=== PATIENT | female | born 1990 | race Caucasian/White ===

== ENCOUNTER 2024-10-29 08:25 | Outpatient (CLI) | payer OTHER, SELFPAY | END 2024-10-29 08:26 | disposition home or self-care (01) | PROVIDERS: PCP Physician Assistant Medical; Visit Provider Physician Assistant Medical | DX: R03.0 Elevated blood-pressure reading, without diagnosis of hypertension (principal); D68.51 Activated protein C resistance; R41.840 Attention and concentration deficit; Z13.6 Encounter for screening for cardiovascular disorders; Z13.29 Encounter for screening for other suspected endocrine disorder; Z13.9 Encounter for screening, unspecified | CPT/HCPCS: 80053; 80061; 84439; 84443 ==

== ENCOUNTER 2024-11-21 23:18 | Emergency (ER) | payer OTHER, SELFPAY ==
--- OUTSIDE RECORDS SUMMARY | 2024-11-21 23:20 | XMS_ITS | Encounter Summary ---
Author Organization [facility] Address [address] [address] Care Team Providers Care Benefits Officer Name Role Phone Angel Luis Samuel MD Primary Care Provider + [phone] Reason for Visit * Reason Comments CONGESTION, NASAL COUGH Encounter Details Date Type Department Care Team (Late st Contact Info) Description 11/14/2024 4:20 PM CDT Office Visit [facility] [address] [place] [id number] Suzie Schmid, PATHOLOGY LABORATORY DIRECTOR, [employer] [address] [place] [address] Acute bacterial sinusitis (Primary Dx) Social History Tobacco Use Types Packs/Day Years Used Date Smoking Tobacco: Never Smokeless Tobacco: Never Alcohol Use Standard Drinks/Week Comments Not Currently 0 (1 standard drink = 0.6 oz pur e alcohol) PHQ-2 Answer Date Recorded PHQ-2 Score 0 11/29/2022 Depression Answer Date Recor ded Last EPDS Total Score 2 08/27/2024 Last EPDS Self Harm Result Not on file 08/27 Comments No Sex and Gender Information Value Date Recorded Sex Assigned at Not on file Legal Sex Female 11:43 AM CDT Gender Identity Not on file Sexual Orientation Not on file 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 Acute Sinusitis: Care Instructions Overview Acute sinusitis is an inflammation of the mucous membranes inside the nose and sinuses. Sinuses arethe hollow spaces in your skull around the eyes and nose. Acute sinusitis often follows a cold. Acute sinusitis causes thick, discolored mucus that drains from the nose or down the back of the throat. It also can cause pain and pressure in your head and face along with a stuffy or blocked nose. In most cases, sinusitis gets better on its own in 1 to 2 weeks. But some mild symptoms may last for several weeks. Sometimes antibiotics are needed if there is a bacterial infection. Follow-up care is a mathis part of your treatment and safety. Be sure to make and go to all appointments, and call your doctor if you are having problems. It's also a good idea to know your test resultsand keep a list of the medicines you take. How can you care for yourself at home? Use saline (saltwater) nasal washes. This can help keep your nasal passages open and wash out mucusand allergens. You can buy saline nose washes at a grocery store or drugstore. Follow the instructions on the package. You can make your own at home. Add 1 teaspoon of non-iodized salt and 1 teaspoon of baking soda to 2 cups of distilled or boiled and cooled water. Fill a squeeze bottle or a nasal cleansing pot (suchas a neti pot) with the nasal wash. Then put the tip into your nostril, and lean over the sink. With your mouth open, gently squirt the liquid. Repeat on the other side. Try a decongestant nasal spray like oxymetazoline (Afrin). Do not use it for more than 3 days in a row. Using it for more than 3 days can make your congestion worse. If needed, take an drrj-gqd-fsdgbxr pain medicine, such as acetaminophen (Tylenol), ibuprofen (Advil, Motrin), or naproxen (Aleve). Read and follow all instructions on the label. If the doctor prescribed antibiotics, take them as directed. Do not stop taking them just because you feel better. You need to take the full course of antibiotics. Be careful when taking fnxt-gfc-grskeyd cold or flu medicines and Tylenol at the same time. Many ofthese medicines have acetaminophen, which is Tylenol. Read the labels to make sure that you are nottaking more than the recommended dose. Too much acetaminophen (Tylenol) can be harmful. Try a steroid nasal spray. It may help with your symptoms. Breathe warm, moist air. You can use a steamy shower, a hot bath, or a sink filled with hot water. Avoid cold, dry air. Using a humidifier in your home may help. Follow the directions for cleaning the machine. When should you call for help? Call your doctor now or seek immediate medical care if: You have new or worse swelling, redness, or pain in your face or around one or both of your eyes. You have double vision or a change in your vision. You have a high fever. You have a severe headache and a stiff neck. You have mental changes, such as feeling confused or much less alert. Watch closely for changes in your health, and be sure to contact your doctor if: You are not getting better as expected. Where can you learn more? 1. Go to https://www.[employer]/healthlibrary. 2. Enter I933 in the search box. Current as of: April 19, 2023 Content Version: 14.2 ?? 2023 [employer]. Care instructions adapted under license by your healthcare professional. If you have questions about a medical condition or this instruction, always ask your healthcare professional. [employer] disclaims any warranty or liability for your use of this information. documented in this encounter Progress Notes * Suzie Schmid, RIMA, ED - 11/14/2024 4:20 PM CDT Chief Complaint: Chief Complaint Patient presents with CONGESTION, NASAL COUGH HPI: Lili Devi is a 33-year-old female presenting to [facility] with complaints of cough and sinus pressure. She reports a persistent cough since September 2024, coinciding with a hysteroscopy performed at that time. Over the past week, she has developed bright green nasal drainage and has been experiencing a sore throat in the mornings. She describes significant head pressure and noted crackling with breathing. When she coughs, the mucus appears white or green. Additionally, she hasbeen feeling fatigued and experiencing brain fog. She denies fever and shortness of breath. Physical Exam: BP (!) 125/92 (BP Location: Left Arm, BP Cuff Size: Large) Pulse 82 Temp 98.6 ??F (37 ??C) SpO2 98% General: Well appearing. No acute distress. ENT: No conjunctival injection. External auditory canal without swelling, erythema or drainage. TMspearly and lowry without fluid, bulging, or retraction. Moist mucous membranes, oropharynx without erythema, exudates or tonsillar enlargement. Nares are without significant drainage. Neck: Supple. No lymphadenopathy or thyromegaly. CV: Regular rate and rhythm. No murmurs, rubs or gallops. Pulm: Breathing easily on room air. Clear to auscultation bilaterally without wheezes, rhonchi or rales. Extremities: Well perfused. Skin: No rashes on exposed areas of skin. Neuro: Alert. Normal speech. Psych:Appropriate affect. Assessment 1. Acute bacterial sinusitis - doxycycline monohydrate (MONODOX) 100 MG capsule; Take 1 Capsule (100 mg) by mouth two times a day for 7 days. Dispense: 14 Capsule; Refill: 0 - fluticasone propionate (FLONASE) 50 MCG/ACT nasal solution; Place 2 Sprays into both nostrils daily. Dispense: 16 g; Refill: 2 -Sinusitis likely related to bacterial infection given symptoms ongoing without improvement for >10 days. Will treat with doxycycline given penicillin allergy. Potential side effects discussed. Symptomatic cares discussed as detailed in the AVS. Patient to return should symptoms not improve withantibiotic course or for any new or worsening symptoms. Patient would like to receive results via OPS. Suzie Schmid APRN, CNP documented in this encounter Plan of Treatment Upcoming Encounters Date Type Department Care Team (Late st Contact Info) Description 02/06/2025 10:10 AM CDT Appointment [facility] [address] [place] [phone] Diane Finn, [facility] [address] [place], [place] [phone] documented as of this encounter Visit Diagnoses Diagnosis Acute bacterial sinusitis- Primary Acute sinusitis, unspecified documented in this encounter Care Teams Benefits Officer Relationship Specialty [place] [address] [place], [place] [phone] PCP - General Family Practice 05/29/23 documented as of this encounter
--- OUTSIDE RECORDS SUMMARY | 2024-11-21 23:20 | XMS_ITS | Encounter Summary ---
Author Organization [facility] Address [address] [place] [address] Care Team Providers Care Glass Ribbon Machine Operator Name Role Phone Angel Luis Samuel MD Primary Care Provider + [phone] Reason for Visit * Reason Comments HEADACHE Hypertension Encounter Details Date Type Department Care Team (Late st Contact Info) Description 11/21/2024 Nurse Triage Careline [address] [place] [address] Unassigned, Provider [address] [place] [address] HEADACHE; Hypertension Social History Tobacco Use Types Packs/Day Years [...] on file documented as of this encounter Nursing Notes * Heidy Schmidt RN - 11/21/2024 10:44 PM CDT Situation/Background (brief explanation of current symptoms/situation): Pt states: I felt off most of day Had a splitting headache earlier Took imitrex Migrained came back, took another dose at 5PM Finie if laying down, if gets up and moves around , it is really bad 163/101, 20 min later BP is 166/105 What level is care If I should go in for Had htn, But it as been a health range since them Had a hyderectomy, since , has been 139/90 High today Headache -03/02 Did have a sinus infection, just completed a dose of doxycycline, last dose this AM Does feel like heart is working hard -- heaviness Difficulty breathing Reason for Disposition [1] Systolic BP >= 160 OR Diastolic >= 100 AND [2] cardiac (e.g., breathing difficulty, chestpain) or neurologic symptoms (e.g., new-onset blurred or double vision, unsteady gait) [1] Chest pain lasts > 5 minutes AND [2] described as crushing, pressure-like, or heavy Protocols used: Blood Pressure - [id number], Chest [id number] Plan - recommend calling 911 due to heaviness in chest and high blood pressure Advised patient/caller to call back CareLine if there are further questions or concerns or to be seen if situation becomes emergent. The CareLine is available 13/02. Heidy Schmidt RN 11/21/2024, 10:53 PM * Ivania Bang - 11/21/2024 10:42 PM CDT Verified patient using 3 identifiers: Yes Caller reports the following red flag symptoms: Pt has high blood pressure and a headache. BP is 163/101 Plan: Transferred directly to a CareLine RN. documented in this encounter Plan of Treatment Upcoming Encounters Date Type Department Care Team (Late st Contact Info) Description 02/06/2025 10:10 AM CDT Appointment [address] [phone] Diane Finn, [facility] [address] [place], [place] [phone] documented as of this encounter Visit Diagnoses Not on filedocumented in this encounter Care Teams Glass Ribbon Machine Operator Relationship Specialty Start [place] [address] [facility] [place] [id number] PCP - General Family Practice 05/29/23 documented as of this encounter
--- OUTSIDE RECORDS SUMMARY | 2024-11-21 23:20 | XMS_ITS | Data Portability ---
Author Organization [facility] [employer], [id number] Address [address] [address] Assessment Encounter Date Assessment Date Assessment LastModified by Organization Details LastModified Time 05/03/2024 05/03/2024 Obese 33yo 01 with irregular periods and intermenstrual bleeding. Suspected endometrial and endocervical polyps. Suspected anovulation. Hirsutism. Query PCO. +FVL. Lili's pelvic ultrasound report and attached images were reviewed with her today in detail. We discussed that the entirety of her images would be reviewed by one of my colleagues who is AI accredited and she would be notified of any consequential changes or concerns. We discussed the suspected 3 endometrial versus endocervical polyps, and how these are likely contributing to her intermenstrual spotting. We discussed the recommendation for surgical management. She will be scheduled for a hysteroscopy, polypectomy, possible dilation and curettage. She was shown a you tube video of a polypectomy to further her understanding of the procedure. She understands the need for direct visualization of the uterine cavity as well as overall sampling of the uterine cavity, given her abnormal bleeding history. We discussed endometrial suppression with oral progesterone after her procedure, as she cannot have estrogen due to her FVL status. All risks, benefits and alternatives of the procedure were discussed today including but not limited to bleeding, infection, injury to surrounding organs/structures (bowel, bladder, ureters, urethra, vagina, cervix, ovaries, tubes)/blood vessels/nerves, need for further procedure, need for hysterectomy, medical complications (pneumonia, stroke, heart attack, DVT/PE, ), risks of anesthesia, uterine scarring, complications for future pregnancies. She will be scheduled for the above procedure and contacted by our surgical sales representative and scheduled for any necessary pre and postoperative visits. She will also complete the prior recommended labs which will be followed up when resulted. All of her questions were answered. I spent a total of 30 minutes providing care for this patient including: preparing to see the patient, obtaining a medical history, completing a medically appropriate physical exam, completing documentation of visit information and plans in the EMR, counseling the patient and/or caregiver regarding her diagnosis, treatment options and follow up plans, as well as any necessary communication of subsequent test results to the patient, reviewing medical records, reviewing imaging. Not available 05/03/2024 11:15:21 07/29/2024 07/29/2024 33yo wit h AUB-P, scheduled for a hysteroscopy, polypectomy, possible D&C 08/22/24 at [facility]. Lili is doing well and has no contraindications for surgery 08/22/24 at [facility]. She will present as recommended by surgical scheduling and will be NPO for at least 8 hours prior to surgery. The surgery was again reviewed in detail, as well as all risks of the procedure, including but not limited to uterine perforation and injury to intraabdominal organs. A you tube video was also shown to Lili to increase her understanding of the procedure. We again reviewed that the majority of polyps are benign, however in the event of hyperplasia or greater, further treatment or surgical intervention may be necessary. Postoperative expectations and restrictions were again reviewed. No prescriptions are needed preoperatively, and she should only need tylenol and ibuprofen postoperatively. Postoperative warning signs/symptoms with which to call were also reviewed. She will then follow up 2 weeks postoperatively, already scheduled for 09/06/24. She will reach out prior to surgery with any further questions. Not available 07/29/2024 09:40:12 09/30/2024 09/30/2024 33yo wit h AUB-P, scheduled for a hysteroscopy, polypectomy, possible D&C 10/09/24 at [facility]. Lili is doing well and has no contraindications for surgery 10/09/24 at [facility]. She will present as recommended by surgical scheduling and will be NPO for at least 8 hours prior to surgery. The surgery was again reviewed in detail, as well as all risks of the procedure, including but not limited to uterine perforation and injury to intraabdominal organs. A you tube video was also previously shown to Lili to increase her understanding of the procedure. We previously reviewed that the majority of polyps are benign, however in the event of hyperplasia or greater, further treatment or surgical intervention may be necessary. Postoperative expectations and restrictions were previously and again reviewed. No prescriptions are needed preoperatively, and she should only need tylenol and ibuprofen postoperatively. Postoperative warning signs/symptoms with which to call were previously reviewed. She will then follow up 2 weeks postoperatively. A prescription for the minipill was sent to her pharmacy today, with instructions on how to start and take the pill, as well as what to do if she is late or misses taking the pill, as well as back up contraception. She will reach out prior to surgery with any further questions. [email or web address] Not available 10/02/2024 00:52:47 11/04/2024 11/04/2024 33yo 3.5 weeks s/p hysteroscopy, polypectomy, D&C for AUB-P, obesity and FVL heterozygote, routine postoperative visit. Lili is doing well and meeting all routine postoperative milestones. She may return to all preoperative activities without restriction. Her pathology was reviewed with her today in detail, highlighting the presence of hyperplasia without atypia. We discussed this diagnosis in detail, as well as the 1-10% risk of the development of neoplasia. We discussed options for treatment including but not limited to expectant management, PO progesterone as well as topical progesterone. She desires to think about PO progesterone (megace) versus an IUD as she desires to attempt to conceive in 1-2 years. She will follow up for routine health maintenance or sooner with concerns. All of her questions were answered to her satisfaction. Not available 11/04/2024 11:12:22 Plan of Treatment Reminders Order Date Submit Date Provider Last Modified By Organization Details Last Modified Time Details Appointments None recorded. Lab hemoglobin (Hb), fingerstick , blood 2024 025 ronnvorso n1 [id number] [facility] , [address] [place] [address], [address], [place], [address], 04/14/202 5 10:48:00 hemoglobin (Hb), fingerstick , blood 2024 025 phalvorso n1 [id number] [facility] , [address] [place] [address] [address] [place], [address], [place], [address], 5 18:09:05 hemoglobin (Hb), fingerstick , blood 2024 025 phalvorso n1 [id number] [facility] , [address] [place] [address], [address], [place], [address], 5 09:18:35 androstened cabazon, serum 2023 [facility], [address] [facility], [address], [place], [address], 4 08:44:28 dhea-sulfat e, serum 2023 [facility], [address] [facility], [address], [place], [address], 4 08:40:14 testosteron e, total, serum 2023 [facility], [address] [facility], [address], [place], [address], 4 08:44:29 lipid panel, serum 2023 [facility], [address] [facility] [address], [address], [place], [address], 4 08:44:25 hemoglobin A1c, QN, blood 2023 [facility], [address] [facility], [address], [place], [address], 4 08:44:22 TSH, serum or plasma 2023 [facility], [address] [facility] [address], [address], [place], [address], 4 08:44:25 FSH (follicle-s timulating hormone), serum 2023 [facility], [address] [facility], [address], [place], [address], 4 08:40:10 lh (luteinizin g hormone), serum 2023 [facility], [address] [facility], [address], [place], [address], 4 08:44:24 estradiol, serum 2023 [facility], [address] [facility], [address], [place], [address], 4 08:40:11 Referral None recorded. Procedures None recorded. Surgeries hysteroscop y, surgical, with biopsy of endometrium and/or polypectomy (SURG) 2023 024 [email or web address] 2 [facility], [address] [place] [address] , [address], [place], [address], 5 12:36:21 Imaging US, transvagina l 2023 024 vishnu [email or web address]_[email or web address] nisreen_ortley, [address], [address], [place], [address], 4 10:07:14 Medication Orders norethindro ne (contracept sadi) 0.35 mg tablet 2024 025 ronnvoangelo n1 [id number], [address] [facility], [place], [address], 5 17:35:28 Patient TargetsNo targets recorded. Patient InstructionsNo instructions recorded. Reason for Referral None Reported. Results Created Date Observation Date Name Description Value Unit Range Abnormal Flag Note LastModifiedBy Organization Detail LastModifiedTime 05/03/2005/03/2024 FOLLI PHYLICIA STIMU LATIN G HORMO NE FSH 2.0 mIU/m L 19 years and older : Folli cular phase : 3.5-1 2.5 mIU/m L Ovula tion phase : 4.7-2 1.5 mIU/m L Lutea l phase : 1.7-7 .7 mIU/m L Postm enopa use: 25.8- 134.8 mIU/m L Not Available [address], [place], [address], 05/06/2024 08:40:10 05/03/20 24 05/03/2024 ESTRA DIOL estradiol 235 pg/mL Healt hy Men: 11.3- 43.2 pg/mL Healt hy Postm enopa usal Women : Postm enopa use: <5-13 8 pg/mL Healt hy Pregn ant Women : 1st trime ster: 154-3 243 pg/mL 2nd trime ster: 1561- 71308 pg/mL 3rd trime ster: 8525- >3000 0 pg/mL Healt hy Women Cycle Phase : Folli cular : 30.9- 90.4 pg/mL Ovula tion: 60.4- 533 pg/mL Lutea l: 60.4- 232 pg/mL Healt hy Women Cycle Sub-P hase: Early Folli cular : 20.5- 62.8 pg/mL Inter media te Folli cular : 26-79 .8 pg/mL Late Folli cular : 49.5- 233 pg/mL Ovula tion: 60.4- 602 pg/mL Early Lutea l: 51.1- 179 pg/mL Inter media te Lutea l: 66.5- 305 pg/mL Late Lutea l: 30.2- 222 pg/mL Not Available [address], [place], [address], 05/06/2024 08:40:11 05/03/20 24 05/03/2024 DHEA SULFA TE DHEA sulfate 128 ug/dL 35-[address] [facility] [address] [facility] [address], [place], [address], 05/06/2024 08:40:14 05/03/2005/03/2024 HEMOG LOBIN A1C estimated average glucose 108 mg/dL <117 Not Available [address], [place], [address], 05/07/2024 08:44:22 05/03/20 24 05/03/2024 HEMOG LOBIN A1C hemoglobin A1C 5.4 % <5.7 Jewels l <5.7% Predi abete s 5.7-6 .4% Diabe xavier 6.5% or highe r Note: Adopt ed from ADA conse nsus guide lines . Not Available [address], [place], [address], 05/07/2024 08:44:22 05/03/20 24 05/03/2024 LUTEI NIZIN G HORMO NE luteinizing hormone 4.4 mIU/m L FEMAL E: Age 0 - 6 mo: <0.1- 8.2 mIU/m L 6 mo - 11 years : <0.1- 1.3 mIU/m L 11 - 14 years : <0.1- 10 mIU/m L 14 - 19 years : 0.4-2 5 mIU/m L 19 years and older : Folli cular Phase : 2.4-1 2.6 mIU/m L Ovula tion Phase : 14.0- 95.6 mIU/m L Lutea l Phase : 1.0-1 1.4 mIU/m L Postm enopa usal: 7.7-5 8.5 mIU/m L Not Available [address], [place], [address], 05/07/2024 08:44:24 05/03/20 24 05/03/2024 LIPID PANEL cholesterol 227 mg/dL <200 high Not Available [address], [place], [address], 05/07/2024 08:44:24 05/03/20 24 05/03/2024 LIPID PANEL triglyceride s 218 mg/dL <150 high Not Available [facility] [address], [place], [address], 05/07/2024 08:44:24 05/03/20 24 05/03/2024 LIPID PANEL direct measure HDL 41 mg/dL >=50 low Not Available [facility] [address], [place], [address], 05/07/2024 08:44:24 05/03/20 24 05/03/2024 LIPID PANEL LDL cholesterol calculated 142 mg/dL <100 high Not Available [facility] [address] [facility] [address], [place], [address], 05/07/2024 08:44:24 05/03/20 24 05/03/2024 LIPID PANEL non HDL cholesterol 186 mg/dL <130 high Not Available [facility] [address] [facility] [address], [place], [address], 05/07/2024 08:44:24 05/03/20 24 05/03/2024 LIPID PANEL patient fasting > 8hrs? Yes Fabi stero l Hakan able: < 200 mg/dL Bor[place] High: 200 - 239 mg/dL High: >= 240 mg/dL Trigl yceri melba Jewels l: < 150 mg/dL [place] High: 150 - 199 mg/dL High: 200-4 99 mg/dL Very High: >= 500 mg/dL Direc t Measu re HDL Femal e: >= 50 mg/dL Male: >= 40 mg/dL LDL Fabi stero l Hakan able: < 100 mg/dL Above Hakan able: 100 - 129 mg/dL [place] High: 130 - 159 mg/dL High: 160 - 189 mg/dL Very High: >= 190 mg/dL Non HDL Fabi stero l Hakan able: < 130 mg/dL Above Hakan able: 130 - 159 mg/dL Minnie win High: 160 - 189 mg/dL High: 190 - 219 mg/dL Very High: >= 220 mg/dL Not Available [address], [place], [address], 05/07/2024 08:44:24 05/03/20 24 05/03/2024 TSH WITH REFLE X TO FREE T4 TSH 2.05 uIU/m L 0.30-4 .20 Not Available [address], [place], [address], 05/07/2024 08:44:25 05/03/20 24 05/03/2024 VICKIE JEZE SALVATORE androstenedi one 0.527 NG/mL 0.260- 2.140 INTER PRETI VE INFOR MATIO N: Vickie salomon salvatore , Femal es 18 years and older Post- menop ausal : 0.13- 0.82 ng/mL REFER ENCE INTER BISHOP: Vickie stene salvatore by TMS Acces s compl ete set of age- and/o r gende r-spe cific refer ence inter vals for this test in the [employer] Test Direc tory ([employer] lab.c om). This test was devel oped and its perfo rmanc e emile cteri stics deter mined by [employer] es. It has not been clear ed or appro amber by the [place] Food and Drug Admin istra tion. This test was perfo rmed in a CLIA certi fied labor atory and is inten ded for clini fernanda purpo ses. Perfo rmed By: [facility] [address] [place] [address] Labor atory Direc tor: Roopa mireles MD, PhD CLIA Numbe r: [id number] Not Available [address], [place], [address], 05/07/2024 08:44:27 05/03/20 24 05/03/2024 TESTO STERO NE TOTAL testosterone total 9 NG/dL 8-60 Not Available [facility] [address], [place], [address], 05/07/2024 08:44:29 07/29/19 25 07/29/2024 hemog lobin (Hb), finge rstic k, blood fingerstick hemoglobin 14.4 g/dL 12.0-1 5.0 Not Available [address], [place], [address], 07/29/2024 09:15:36 10/01/19 25 09/30/2024 hemog lobin (Hb), finge rstic k, blood fingerstick hemoglobin 13.3 g/dL 12.0-1 5.0 Not Available [address], [place], [address], 09/30/2024 17:12:21 11/05/19 25 11/04/2024 hemog lobin (Hb), finge rstic k, blood fingerstick hemoglobin 12.2 g/dL 12.0-1 5.0 Not Available [address], [place], [address], 11/04/2024 10:38:15 05/03/20 24 05/03/2024 US, trans vagin al No observ ation record ed. aalmdanisreen Scott [address], [place], [address], 05/08/2024 10:09:39 Result Notes None recorded. Problems No Known Problems Procedures Surgical History Date Name Laterality Status Provider Name and Address Organization Details Recorded Time 10/10/19 25 HYSTEROSCOPY, SURGICAL, WITH BIOPSY OF ENDOMETRIUM AND/OR POLYPECTOMY (SURG) completed Karen AGUILLON - [facility] [employer] 10/14/2024 12:36:33 03/24/20 23 Date of Last Pap Smear completed Ivania Dial [facility] [employer] [employer] 01/29/2024 17:44:10 12/05/19 21 Caesarean Section completed Irais Mane [facility] [employer] 05/03/2024 09:39:14 Imaging Results Imaging Date Name Status LastModified by Organization Details LastModified Time 05/03/2024 US, transvaginal completed a[place] Sonia [address], [place], [address], 05/08/2024 10:09:39 Procedure Notes None recorded. Medical Equipment None Reported. Allergies Allergen ID Allergen Name Allergen Category Reaction Reaction Severity Criticality Documentation Date Start Date Code Code System Note Provider Name and Address Organization Details Recorded Time 744110 amoxicill in medicatio n rash Not available low 01/29/2024 723 RxNorm Ivania Dial janna, [facility] [employer] 17:16:47 Medications Name Sig Start Date Stop Date Status Note LastModified by Organization Details LastModified Time ofloxacin 0.3 % eye drops INTILL 1 DROP IN THE AFFECTED EYE EVERY 2 HOURS FOR 2 DAYS, THEN 4 TIMES DAILY FOR 5 MORE DAYS 01/28 completed Not Available Not Available Not Available sumatriptan 50 mg tablet active Not Available Not Available Not Available triamcinolo ne acetonide 0.1 % topical cream APPLY TO AFFECTED AREA THREE TIMES A DAY NEEDED (ONLY USE FOR 7 DAYS MAXIMUM ON FACE) 01/28 completed Not Available Not Available Not Available lisinopril 10 mg tablet TAKE ONE TABLET BY MOUTH EVERY DAY 05/02 completed Not Available Not Available Not Available megestrol 40 mg tablet Take 1 tablet every day by oral route. 2024 active Not Available Not Available Not Avai lable norethindro ne (contracept sadi) 0.35 mg tablet TAKE ONE TABLET BY MOUTH EVERY DAY active Not Available Not Available No t Available doxycycline hyclate 100 mg tablet TAKE ONE TABLET BY MOUTH TWICE A DAY FOR 10 DAYS 01/28 completed Not Available Not Available Not Available dextroamphe tamine-amph etamine 5 mg tablet Take 1 tablet every day by oral route. active Not Available Not Available No t Available multivitami n active Not Available Not Available Not Available lisdexamfet amine 50 mg capsule TAKE 1 CAPSULE BY MOUTH DAILY IN THE MORNING* active Not Available Not Available No t Available lisdexamfet amine 60 mg capsule TAKE ONE CAPSULE BY MOUTH DAILY IN THE MORNING. Dispense 28 days after last fill* 07/29 completed Not Available Not Available Not Available Wegovy 1 mg/0.5 mL subcutaneou s pen injector INJECT 0.5 ML UNDER THE SKIN ONCE A WEEK FOR 28 DAYS 01/28 completed Not Available Not Available Not Available Vitals Date Recorded Body height Body mass index (BMI) Body weight Systolic blood pressure Diastolic blood pressure Provider Name and Address Organization Details Last Updated DateTime 05/03/2024 175.26 cm 39.6 kg/m2 836768.7 6 g 126 mm[Hg] 84 mm[Hg] [facility] 4 09:44:24 Date Recorded Body height Body mass index (BMI) Body weight Systolic blood pressure Diastolic blood pressure Provider Name and Address Organization Details Last Updated DateTime 07/29/2024 175.26 cm 39.4 kg/m2 040227.1 6 g 130 mm[Hg] 88 mm[Hg] [facility] 5 09:13:53 Date Recorded Body height Body mass index (BMI) Body weight Systolic blood pressure Diastolic blood pressure Provider Name and Address Organization Details Last Updated DateTime 09/30/2024 175.26 cm 38.8 kg/m2 591122.3 6 g 126 mm[Hg] 86 mm[Hg] [facility] 5 17:10:44 Date Recorded Body height Body mass index (BMI) Body weight Systolic blood pressure Diastolic blood pressure Systolic blood pressure Diastolic blood pressure Provider Name and Address Organization Details Last Updated DateTime 5 175.26 cm 38.7 kg/m2 742108. 48 g 148 mm[Hg] 100 mm[Hg] 142 mm[Hg] 96 mm[Hg] [facility] 5 10:35:52 Social History Question Answer Notes LastModified by Organizat ion Details LastModified Time Tobacco Smoking Status Never Smoker [place] [employer] 01/29/2024 17:50:43 What Is Your Level Of Alcohol Consumption? None Information not available 01/29/2024 What Is Your Level Of Caffeine Consumption? Moderate Information not available 01/29/2024 History Of Domestic Violence No Information no t available 01/29/2024 Spouse/Partners Name Fransisco Information not available 01/29/2024 What Is Your Relationship Status? Information not available 01/29/2024 Are You Sexually Active? Yes Information not available 01/29/2024 Do You Use Any Illicit Or Recreational Drugs? No Information not available 01/29/2024 Sex: Unknown Functional Status Question Answer Note LastModified by Organization D etails LastModified Time What is your exercise level? Moderate [email or web address] Information not available 01/29/2024 Mental Status None recorded. Family History Relationship Description Onset Age of this Age Resolved Age Notes LastModified by Organization Details LastModified Time Mother Pulmonary embolism [email or web address] Not available 2023 08:58:26 Sister Pulmonary embolism [email or web address] Not available 2023 08:58:26 Maternal Grandmother Pulmonary embolism [email or web address] Not available 2023 08:58:26 Father Diabetes mellitus Not available 01/28 17:48:52 Father Hyperlipidem ia Not available 2023 08:58:26 Father Hypertensive disorder Not available 01/28 17:49:52 Paternal Grandfather Diabetes mellitus Not available 01/28 17:48:52 Paternal Grandfather Myocardial infarction Not available 02/2024 17:49:10 Paternal Grandfather Hyperlipidem ia [email or web address] Not available 2023 08:58:26 Paternal Grandfather Hypertensive disorder Not available 01/28 17:49:52 Paternal Grandmother Myocardial infarction Not available 02/2024 17:49:10 Paternal Grandmother Hyperlipidem ia [email or web address] Not available 2023 08:58:26 Paternal Grandmother Hypertensive disorder Not available 01/28 17:49:52 Medical History Condition Response Hematology- Blood Clotting Disorder/Fact or V Leiden Y Neurology- Headaches/Migraines Y Cardiology- High Blood Pressure Y Hematology- DVT/Pulmonary Embolism N Gynecological History Statement/Question Response History of Abnormal PAP N History of Recurrent Ovarian Cysts N Date of LMP 10/17/2024 6 11 Age at Menarche: 11 History of Sexually Transmitted Infectio n N Y HPV Vaccine Complete Diethylstilbestrol (MELBA) exp osed daughters of women who took MELBA during ? N Current Control Method Condoms Urinary Incontinence Symptoms N Date of Last Pap Smear 03/24/2023 Obstetrics History GPAL:G 1 P 1 0 0 1 Type Value Full Term 1 Living 1 Total 1 Immunizations Vaccine Type Date Status Note Provider Nam e and Address Organization Details Recorded Time Influenza, MDCK, quadrivalent, PF 05/27/2023 completed Ivania Yojana null, [place] [facility] 01/29/2024 17:14:17 Influenza, MDCK, quadrivalent, PF 05/31/2022 completed Ivania Yojana null, [place] [employer] 01/29/2024 17:14:17 COVID-19, mRNA, LNP-S, PF, 30 mcg/0.3 mL dose 10/19/2020 completed Ivania Nicholas null, [place] [facility] 01/29/2024 17:14:17 COVID-19, mRNA, LNP-S, PF, 30 mcg/0.3 mL dose 11/09/2020 completed Ivania Nicholas null, [place] - [place] [facility] 01/29/2024 17:14:17 COVID-19, mRNA, LNP-S, PF, 30 mcg/0.3 mL dose 07/01/2021 completed Ivania Nicholas null, [place] - [facility] 01/29/2024 17:14:17 COVID-19, mRNA, LNP-S, bivalent, PF, 30 mcg/0.3 mL dose 06/06/2022 completed Ivania Yojana null, [place] - [facility] 01/29/2024 17:14:17 COVID-19, mRNA, LNP-S, PF, sergio-sucrose, 30 mcg/0.3 mL 05/27/2023 completed Ivania Nicholas null, [place] - [facility] 01/29/2024 17:14:17 Tdap 11/27/2020 completed Ivania Nicholas null, [place] [facility] 01/29/2024 17:14:17 Tdap 03/06/2020 completed Ivania Nicholas null, [place] [facility] 01/29/2024 17:14:17 Influenza, split virus, trivalent, PF 05/05/2020 completed Ivania Nicholas null, [place] [facility] 01/29/2024 17:14:17 Influenza, split virus, quadrivalent, PF 04/19/2021 completed Ivania Nicholas null, [place] [facility] 01/29/2024 17:14:17 COVID-19, mRNA, LNP-S, PF, sergio-sucrose, 30 mcg/0.3 mL 04/29/2024 completed Irais Mohamed null, [place] [facility] 05/03/2024 09:41:03 Influenza, MDCK, trivalent, PF 04/29/2024 completed Irais Mohamed null, [place] - [facility] 05/03/2024 09:41:03 Past Encounters Encounter ID Performer Location Encounter Start Date Encounter Closed Date Diagnosis/Indication Diagnosis SNOMED-CT Code Diagnosis ICD10 Code Diagnosis Note [id number] BRO LEMUS MD [id number] [facility] [facility] ,[address] [place] [id number] 01/29/2024 17:11:02 01/30/2024 09:45:24 Irregular periods 12130885 N92.6 Irregular intermenstrual bleeding 77661359 N92.1 Gynecologi c examination 20793917 Z01.419 Obesity [id number] E66.9 [id number] GILBERTO NEFF MD [id number] [address] [place] ,[address] [place] [address] 05/03/2024 08:58:23 05/03/2024 09:41:16 Abnormal uterine bleeding [id number] 9100 N93.9 [id number] BRO LEMUS MD [address] ,[address] [facility] [place] [address] 05/03/2024 09:37:47 05/03/2024 11:39:27 Endometrial polyp [id number] N84.0 Surgery Scheduling : 1. Surgery: hysterosco py, polypectom y 2. Reason/ind ication: endometria l/endocerv ical polyps, intermenst rual bleeding 3. Head Of It? : no 4. Anesthesia : MAC, local 5. Location/a dmission status: [facility] 6. Time: 60 minutes 7. Instrument s: truclear 8. Rep?: no 9. Antibiotic s?: none indicated 10. Preop: with PH 2 weeks prior11. Postop: with PH 2 weeks after Irregular periods [id number] 07 N92.6 Hirsutism [id number] L68. 0 Factor V L eiden mutation [id number] D68.51 [id number] BRO LEMUS MD [address] ,[address] [place] [address] 07/29/2024 09:03:16 07/29/2024 09:50:31 Pre-surgery evaluation [id number] Z01.818 Abnormal u terine bleeding [id number] 9100 N93.9 Polyp of cervix 29775739 N84.1 [id number] BRO LEMUS MD [address] ,[address] [facility] [place] [place] [address] 09/30/2024 16:58:33 10/02/2024 13:24:05 Preprocedural examination done [id number] 21787 Z01.818 Pre-surger y evaluation 439272065 Z01.818 Abnormal u terine bleeding 4935945395 9100 N93.9 Polyp of cervix 96522443 N84.1 Initial pr escription of oral contraception 936877033 Z30.988 [id number] BRO LEMUS MD [address] [address] [facility] [address] ,[address] [place] [address] 11/04/2024 10:26:33 11/04/2024 11:13:22 Endometrial hyperplasia 642409021 N85.00 Postoperative visit 1832 29920 Z48.89 Health Concerns Section Related Observation LastModified by Organization Detai ls LastModified Time None Recorded Concern Status LastModified by Organization Details LastModified Time None Recorded Advance Directives Directive None Recorded Payers Encounter Date Sequence Insurance Name Policy Number Policy Arreaga Covered Member ID Arreaga Member ID Guarantor Name 05/03/2024 1 [employer] - OPEN ACCESS CHOICE (HMO) 361 Lili Devi [id number] Lili Devi 05/03/2024 1 [employer] - OPEN ACCESS CHOICE (HMO) 361 Lili Devi [id number] Lili Devi 07/29/2024 1 [employer] - OPEN ACCESS CHOICE (HMO) 361 Lili Devi [id number] Lili Devi 09/30/2024 1 [employer] - OPEN ACCESS CHOICE (HMO) 361 Lili Devi [id number] Lili Devi 11/04/2024 1 [employer] - OPEN ACCESS CHOICE (HMO) 361 Lili Devi [id number] Lili Devi Notes Date Note Type Note Provider Name and Address Organization Details Recorded Time 05/03/2024 text/html Lili is a 33yo , LMP 04/12/24, who returns after a pelvic ultrasound, obtained for irregular periods and intermenstrual bleeding. She was last seen 01/29/24 for an annual exam, at which time she reported irregular periods over the past year. She noted for the most recent 4 months, she has also been having irregular, intermenstrual spotting, even a day or so. She noted her cycles were ranging from q14-35 days. She also reported occasional nipple and lower abdominal hairs. That day, it was recommended to check labs given her suspected anovulation and hirsutism as well as obtain a pelvic ultrasound. Due to the time of her appointment, however, she was unable to have her labs drawn. Thus, she will complete these today. Pelvic ultrasound today, 05/03/24, showed the following:Uterus 10.11 x 4.9 x 6.41cm, AVEMS 14.35mm, 3 suspected endometrial/endocervic al polyps: 1.7cm, 1.0cm and 0.4cmROV not visibleLOV 4.3 x 3.2 x 2.5cm with a 3.2cm simple cystNo FF She reports that since the was last seen, she has continued to have intermenstrual bleeding. Most recently, this occurred 03/31, at which time she reports she soaked a pad during the day, with a large gush of bright red bleeding, out of no where. She then got a normal period 2 [place] [id number], [place], [address], [facility] - [employer] 05/03/2024 11:16:10 07/29/2024 text/html Lili is a 33yo , LMP 07/09/24, who presents for a preoperative visit. She is scheduled for a hysteroscopy, polypectomy, possible D&C with Daljit at the [facility] on 08/12/24. Pelvic ultrasound 05/03/24 showed at least 3 suspected endocervical polyps: 1.7cm anterior, 1.0cm posterior and 0.4cm posterior. She had anesthesia in the past for her section and did well. She has no family history of problems with anesthesia. She has FVL (heterozygote), EDMAR as well as HTN, however she is no longer on antihypertensives. She is taking lisdexamfetamine 50mg daily and an as needed adderall 5mg prn tablet. She is taking a hair, skin and nails vitamin. She does not take any herbal supplements.She is allergic to amoxicillin, for which she gets a rash. She denies any recent fevers, chills, nausea, emesis, diarrhea, constipation or dysuria. She denies chest pain, shortness of breath or abdominal pain. They had walking pneumonia and strep right before [place]. Her hemoglobin today [place] 14.4 [place] [id number], [place], [address], [facility] - [employer] 07/29/2024 09:40:44 09/30/2024 text/html Lili is a 33yo , LMP 09/10/24 who presents for a preoperative visit. She is scheduled for a hysteroscopy, polypectomy, possible D&C with Truclear at the [facility] on 10/09/24. Pelvic ultrasound 05/03/24 showed at least 3 suspected endocervical polyps: 1.7cm anterior, 1.0cm posterior and 0.4cm posterior. The whole family had strep right before her initially planned procedure, 08/12/24, and thus she rescheduled her procedure. She had anesthesia in the past for her section and did well. She has no family history of problems with anesthesia. She has FVL (heterozygote), EDMAR as well as HTN, however she is no longer on antihypertensives. She is taking lisdexamfetamine 50mg daily and an as needed adderall 5mg prn tablet. She is taking a hair, skin and nails vitamin. She does not take any herbal supplements.She is allergic to amoxicillin, for which she gets a rash. She denies any recent fevers, chills, nausea, emesis, diarrhea, constipation or dysuria. She denies chest pain, shortness of breath or abdominal pain. Her hemoglobin today is 13.3. She is interested in starting on POPs (due to her contraindication to estrogen) [place] [address] [facility],[address], [place], [address], [place] [facility] [employer] 10/02/2024 00:53:06 11/04/2024 text/html Lili is a 33yo 3.5 weeks s/p hysteroscopy, polypectomy, D&C for AUB-P, obesity and FVL heterozygote who presents for a routine postoperative visit. Intraoperative findings were significant for 2 2cm polyps with right fundal cobwebby endometrium and remaining proliferative endometrium. Final pathology showed the following:Fragments of endometrial polyp with focal hyperplasia and metaplastic changesComment: sections of the endometrial polyp show foci of crowding of irregular glands, back to back with little intervening stroma. These foci show predominantly tubal metaplasia with no definitive cytologic atypia divergent from the background endometrium. The overall findings are sufficient for diagnosis of hyperplasia without atypia. Close follow up is recommended. Since surgery, Lili has been doing well. She initially only had a small amount of bleeding which then stopped. She has not had any abdominal or pelvic cramping. She denies fevers, chills, nausea, emesis, diarrhea, constipation [place] [address] [facility],[address], [place], [address], [place] [facility] [employer] 11/04/2024 11:12:42 OBGyn Episode Ob Episode Information Episode Created Date Number of Fetuses Patient Bloodtype Patient rh Status Prepregnancy Weight lbs Domestic Partner Domestic Partner Phone Father Name Crisis Clinician Status 01/29/20 24 1 CLOSED Fetus Data First Name Last Name Admitted to NICU Weight (g) Sex Living Outcome Pediatric Complications Fetus ID Race Codes Race Delivery Type F Full Term [id number] Henry Calculation Initial Henry Date Initial Exam Date Initial Exam Provider Initial Ultrasound Date Last Menstrual Period Date Ultra Sound Weeks Gestation 0 Eighteen To Twenty Week Henry Update Ultra Sound Date Fundal Height At Umbil Quickening Date Ultra Sound Latest Weeks Gestation Final Henry Confirmed By Final Henry Confirmed Date Final Henry Date Ultra Sound Latest Days Gestation 0 0 Menstrual History Last Menstrual Date Menses Monthly On Bcp Conception Prior Menses Frequency Hcg Plus Date Menarche Onset Age Delivery Information Delivery Date Delivery Type Labor Anesthesia Weeks Gestation Incision Type Labor Labor Length Hrs Delivered By Post Complications Tubal Sterilization Discharge Date Comments 1 Regional-Sp inal 37.6 Discharge Information Feeding Method Contraceptive Method Maternal HG B and HCT Levels
--- OUTSIDE RECORDS SUMMARY | 2024-11-21 23:20 | XMS_ITS | Clinical Summary ---
Author Organization [facility] Address [address] [address] Care Team Providers Care Lifeline Representatives Name Role Phone Angel Luis Samuel MD Primary Care Provider + [phone] Source Comments You are receiving this document as you are listed as the primary care provider,follow-up provider, or the patient has been referred to you for consultation.This is in compliance with the Medicare and[facility] E[facility] Incentive [facility],which states Providers who transition their patient to another setting of careor provider of care or refers their patient to another provider of care shouldprovide summary care record for each transition of care or referral. [employer] Allergies Active Allergy Reactions Criticality Noted Date Comments Amoxicillin Other, see comments 04/15/2020 Does not remember the reaction was when she was a toddler Medications Multiple Vitamins-Iron (MULTIVITAMINS-I MEET) tablet Take 1 Tablet by mouth. Active cetirizine (ZYRTEC) 10 MG tablet Take 1 Tablet (10 mg) by mouth daily. Active SUMAtriptan (IMITREX) 50 MG tablet Take one-half tablet (25 mg) by mouth as needed for Migraine at onset of headache; may repeat one time in 2 hours if headache recurs. 9 Tablet 3 03/21/2024 4:37 PM CDT Active lisdexamfetamine (VYVANSE) 50 MG capsule TAKE 1 CAPSULE DAILY IN THE MORNING. 30 Capsule 05/15/2024 4:47 PM CDT 4 Active lisdexamfetamine (VYVANSE) 50 MG capsule TAKE 1 CAPSULE DAILY IN THE MORNING. Dispense 28 days after last rx 30 Capsule 06/14/2024 1:35 PM PARTS ROOM ASSISTANT 4 Active amphetamine-dext roamphetamine (ADDERALL) 5 MG tablet Take 1 tablet by mouth daily. 90 Tablet 08/21/2024 5:34 PM PARTS ROOM ASSISTANT 5 Active lisdexamfetamine (VYVANSE) 50 MG capsule Take 1 capsule (50 mg) by mouth daily. 90 Capsule 11/20/2024 10:04 AM CDT 5 Active megestrol (MEGACE) 40 MG tablet Take 1 tablet by mouth every day. 90 Tablet 3 11/14/2024 4:43 PM CDT 5 Active doxycycline monohydrate (MONODOX) 100 MG capsuleIndicatio ns:Acute bacterial sinusitis Take 1 Capsule (100 mg) by mouth two times a day for 7 days. 14 Capsule 5 11/22/19 25 Active fluticasone propionate (FLONASE) 50 MCG/ACT nasal solutionIndicati ons:Acute bacterial sinusitis Place 2 Sprays into both nostrils daily. 16 g 2 5 Active fluticasone propionate (FLONASE) 50 MCG/ACT nasal solution 1 11/15/19 25 Discontinu ed(Discont inued) lisinopril (ZESTRIL) 10 MG tabletIndication s:Essential hypertension (HRC) Take 1 Tablet (10 mg) by mouth daily. 90 Tablet 3 3 11/15/19 25 Discontinu ed(*Resolv ed Condition) VYVANSE 50 MG capsule Take 1 Capsule (50 mg) by mouth every morning. 3 11/15/19 25 Discontinu ed(*Resolv ed Condition) lisdexamfetamine (VYVANSE) 50 MG capsule Take 1 capsule (50 mg) by mouth daily. 90 Capsule 08/20/2024 4:53 PM PARTS ROOM ASSISTANT 5 10/30/19 25 Discontinu ed(*Med change OR same med OR reorder, new dose/direc tions) Active Problems Problem Noted Date Diagnosed Date Migraine with aura and witho ut status migrainosus, not intractable 03/21/2024 BMI 40.0-44.9, adult 12/06/2022 Essential hypertension 12/06/2022 Obstructive sleep apnea 08/23/2022 S/P primary low transverse 12/06/2020 Gestational thrombocytopenia 11/02/2020 Overview (11/02/2020): Plts 146 @ 33wks Resolved Problems Problem Noted Date Diagnosed Date Resolved Date Decreased movement 08/28/202006/2021 Encounters Date Type Department Care Team Description 11/21/2024 Nurse Triage Careline [address] [place], [place] [address] Unassigned, Provider HEADACHE; Hypertension 11/14/2024 4:20 PM CDT Office Visit [facility] [address] [address] Suzie Schmid, DIRECTOR BUSINESS INTELLIGENCE, TECHNICAL MANAGER Acute bacterial sinusitis (Primary Dx) from Last 3 Months Immunizations Immunization Administration Dates Next Due Flu Vac Preserv Free (3+yrs) 05/05/2020 Hepatitis B - Surface Antibody Positive 04/15/20 Influenza (Flucelvax), Preserv Free QIV 05/27/20 23,05/31/2022 Influenza IIV4 (Quadrivalent) 0.5mL (72186) 03/25 Influenza ccIIV3 6 months+ (Flucelvax) Pfizer Bivalent 12+ 06/06/2022 Pfizer COVID-19 12+ 04/29/2024,05/27/2023 Pfizer Monovalent 12+ Purple Top 07/01/2021,10/22,10/19/2020 Tdap 11/27/2020,03/06/2020 Family History Medical History Relation Name Comments Diabetes, Type II Father Irritable Bowel Syndrome Father Irritable Bowel Syndrome Mother Celiac Disease Brother Irritable Bowel Syndrome Brother Glaucoma Maternal Grandfather Cataract Maternal Grandmother Diabetes, Type II Paternal Grandfather Diabetes, Type II Paternal Grandmother Irritable Bowel Syndrome Sibling 1 Irritable Bowel Syndrome Sibling 2 Amblyopia/Strabismus Negative Family History Blindness Negative Family History Macular Degeneration Negative Family History Retinal Detachment Negative Family History Relation Name Status Comments Father Alive Mother Alive Brother Maternal Grandfather Maternal Grandmother Alive Paternal Grandfather Paternal Grandmother Alive Sibling 1 Sibling 2 Social History Tobacco Use Types Packs/Day Years Used Date Smoking Tobacco: Never Smokeless Tobacco: Never Tobacco Cessation:Counseling Given: Not Answered Alcohol Use Standard Drinks/Week Comments Not Currently [...] Not on isaac e Not on file Last Filed Vital Signs Vital Sign Reading Time Taken Comments Blood Pressure 125/92 11/14/2024 4:36 PM CDT Pulse 82 11/14/2024 4:29 PM CDT Temperature 37 C (98.6 F) 11/14/2024 4:29 PM CDT Respiratory Rate 18 12/17/2020 9:00 PM CDT Oxygen Saturation 98% 11/14/2024 4:29 PM CDT Inhaled Oxygen Concentration - - Weight 120.2 kg (265 lb) 03/21/2024 1:59 PM CDT Height 175.3 cm (5' 9) 03/21/2024 1:57 PM CDT Body Mass Index 39.13 03/21/2024 1:57 PM CDT Plan of Treatment Upcoming Encounters Date Type Department Care Team (Late st Contact Info) Description 02/06/2025 10:10 AM CDT Appointment [facility] [address] [place] [address] Diane Finn [facility] [address] [place], [place] [id number] Health Maintenance Due Date Last Done Comments Adult Preventive Visit 03/24/2025 03/24/2023, 2021 Cervical Cancer Screening 03/24/20282022, 03/24/2023, 04/15/2020 DTaP/Tdap/Td Vaccine (3 - Tdap) 11/27/2030 11/27/2020, 03/06/2020 Zoster/Shingles Vaccine (1 of 2) 2040 HIV Screening (Preventive Services) Completed 04/15/2020 Hep C Screening (Preventive Services) Completed 03/21/2024 COVID-19 Vaccine Completed 04/29/2024, 10/2022, 06/06/2022, Additional history exists Influenza Vaccine Completed 04/29/2024, , 05/31/2022, Additional history exists HPV Vaccine Aged Out No longer eligi ble based on patient's age to complete this topic HepA Vaccine Aged Out No longer eligi ble based on patient's age to complete this topic Hib Vaccine Aged Out No longer eligi ble based on patient's age to complete this topic IPV (Polio) Vaccine Aged Out No longe r eligible based on patient's age to complete this topic MCV4 Vaccine Aged Out No longer eligi ble based on patient's age to complete this topic Meningococcal B Vaccine Aged Out No l onger eligible based on patient's age to complete this topic Pneumococcal Vaccine Aged Out No long er eligible based on patient's age to complete this topic Procedures Procedure Name Priority Date/Time Associated Diagnosis Comments HEPATITIS C ANTIBODY, WITH REFLEX Routine 03/21/2024 3:11 PM CDT Routine screening for STI (sexually transmitted infection) CYTOLOGY (PAP) Routine 03/24/2023 8:54 AM CDT Screening for malignant neoplasm of cervix HIV 1/2 AG/AB 4TH GEN Routine 04/15/2020 10:40 AM CDT Encounter for supervision of other normal in first trimester from Last 3 Months or Most Recently Relevant to Health Maintenance Results * Hepatitis C Antibody, with Reflex (03/21/2024 3:11 PM CDT) Hepatitis C Antibody Negative (Non Reactive) Negative (Non Reactive) 03/21/2024 11:40 PM CDT [facility] Comment:Antibodies to HCV no t detected. Does not exclude the possiblity of exposure to HCV. Blood Lab OP Venipunct ure / Unknown 03/21/2024 3:11 PM CDT 03/21/2024 3:19 PM CDT us Suzie Schmid DIRECTOR BUSINESS INTELLIGENCE, TECHNICAL MANAGER LAB_1 F inal Result [facility] [address] [place] [address], [facility] * PAP Test (03/24/2023 8:54 AM CDT) Case Report Pap Case: [id number] Authorizing Provider: Madie Sunshine MD Collected: 03/24/2023 0854 Ordering Location: [facility] Received: 03/24/2023 1307 and Gynecology First Screen: Thu Duran CT (ASCP) Specimen: Pap Test, Routine, Cervix/Endocervix 03/31/2023 8:05 AM [facility] Pap Specimen Adequacy Satisfactory for evaluation, endocervical/martinez sformation zone component absent. 03/31/2023 8:05 AM [facility] Pap Interpretation (NILM) Negative for intraepithelial lesion or malignancy. 03/31/2023 8:05 AM [facility] at 0805 CDT Pap Disclaimer The Pap test is a screening test to aid in the detection of cervical and vaginal cancers and their precursor lesions. It is not a diagnostic procedure and should not be used as the sole means of detecting malignancy. Both false-positive and false-negative results may occur. 03/31/2023 8:05 AM [facility] Gross Description The specimen is received in SurePath fixative and properly labeled. 1 Pap-stained SurePath slide is prepared. 03/31/2023 8:05 AM [facility] Embedded Images 8:05 AM [facility] Other Specimen Type ENTIRE ENDOCERVIX / Unknown 03/24/2023 8:54 AM CDT 03/24/2023 1:07 PM CDT Comment:LMP: No LMP recorded . (Menstrual status: IUD). Madie Sunshine MD LAB PATHOLOGY Final Resul t [address] [address], [facility] [phone] * HIV 1/2 AG/AB 4TH GEN (04/15/2020 10:40 AM CDT) HIV 1/2 Antigen/Anti body (4th generation) Negative (Non Reactive) Negative (Non Reactive) 04/15/2020 3:28 PM CDT [facility] Comment:HIV-1 p24 Antigen an d HIV-1/HIV-2 Antibody not detected Blood Venipuncture / Unknown 04/15/2020 10:40 AM CDT 04/15/2020 10:40 AM CDT Madie Sunshine MD LAB_1 Final Resul t Performing Organization Address City/[facility]/ZIP Co de Phone Number [facility] [address] [phone] from Last 3 Months or Most Recently Relevant to Health Maintenance Insurance SELF INSURED SELF INSURED HP SELF INSURED HP COMM HP FAMILY DENTAL Advance Directives * Full Code (Latest Code Status on File) Date Activated Date Inactivated Comments 12/04/2020 8:11 PM 12/06/2020 6:58 PM * Full Code Date Activated Date Inactivated Comments 12/04/2020 1:28 AM 12/04/2020 8:11 PM Care Teams Lifeline Representatives Relationship Specialty [place] [address] [place] [address] PCP - General Family Practice 05/29/23
--- OUTSIDE RECORDS SUMMARY | 2024-11-21 23:21 | XMS_ITS | Continuity of Care Document ---
Author Organization PAL Moss PARADICHLOROBENZENE TENDER, [id number] Address [address] [facility] [place] [address] Assessment Encounter Date Assessment Date Assessment LastModified by Organization Details LastModified Time 11/04/2024 11/04/2024 33yo 3.5 weeks s/p hysteroscopy, [...] fingerstick , blood 2024 025 phalvorso n1 [id number] le_[place] , [address] [facility], [address], [place], [address], 10:48:00 Referral None recorded. Procedures None recorded. Surgeries None recorded. Imaging None recorded. Medication Orders None recorded. Patient TargetsNo targets recorded. Patient InstructionsNo instructions recorded. Reason for Referral None Reported. Results Created Date Observation Date Name Description Value Unit Range Abnormal Flag Note LastModifiedBy Organization Detail LastModifiedTime 11/05/19 25 11/04/2024 hemog lobin (Hb), justo rstic k, blood fingerstick hemoglobin 12.2 g/dL 12.0-1 5.0 Not Available [id number] [place] [address] [facility] [address], [place], [address], 11/04/2024 10:38:15 Result Notes None recorded. Problems No Known Problems Procedures Surgical History Date Name Laterality Status Provider Name and Address Organization Details Recorded Time 10/10/19 25 HYSTEROSCOPY, SURGICAL, WITH BIOPSY OF ENDOMETRIUM AND/OR POLYPECTOMY (SURG) completed Karen Hahn [facility] PARADICHLOROBENZENE TENDER 10/14/2024 12:36:33 03/24/20 23 Date of Last Pap Smear completed Ivania Dial [facility] [employer]ICHLOROBENZENE TENDER 01/29/2024 17:44:10 12/05/19 21 Caesarean Section completed Irais Mane [facility] [employer]ICHLOROBENZENE TENDER 05/03/2024 09:39:14 Imaging Results None recorded. Procedure Notes None recorded. Medical Equipment None Reported. Allergies Allergen ID Allergen Name Allergen Category Reaction Reaction Severity Criticality Documentation Date Start Date Code Code System Note Provider Name and Address Organization Details Recorded Time [id number] amoxicill in medicatio n rash Not available low 01/29/2024 723 RxNorm Ivania saldivar [facility] PARADICHLOROBENZENE TENDER 17:16:47 Medications Name Sig Start Date Stop [...] Updated DateTime 5 175.26 cm 38.7 kg/m2 925685. 48 g 148 mm[Hg] 100 mm[Hg] 142 mm[Hg] 96 mm[Hg] Irais Moss [employer]ADICHLOROBENZENE TENDER 5 10:35:52 Social History Question Answer Notes LastModified by Organizat ion Details LastModified Time Tobacco Smoking Status Never Smoker PAL Winston PARADICHLOROBENZENE TENDER 01/29/2024 17:50:43 What Is Your Level Of [...] Time What is your exercise level? Moderate Information not available 01/29/2024 Mental Status None recorded. Family History Relationship Description Onset Age of this Age Resolved Age Notes LastModified by Organization Details LastModified Time Mother Pulmonary embolism [email or web address] Not available 2023 08:58:26 Sister Pulmonary embolism [email or web address] Not available 2023 08:58:26 Maternal Grandmother Pulmonary embolism Not available 2023 08:58:26 Father Diabetes mellitus Not available 01/28 17:48:52 Father Hyperlipidem ia [email or web address] Not available 2023 08:58:26 Father Hypertensive disorder Not available 01/28 17:49:52 Paternal Grandfather Diabetes mellitus Not available 01/28 17:48:52 Paternal Grandfather Myocardial infarction Not available 02/2024 17:49:10 Paternal Grandfather Hyperlipidem ia [email or web address] Not available 2023 08:58:26 Paternal Grandfather Hypertensive disorder Not available 01/28 17:49:52 Paternal Grandmother Myocardial infarction Not available 02/2024 17:49:10 Paternal Grandmother Hyperlipidem ia Not available 2023 08:58:26 Paternal Grandmother Hypertensive [...] n N Y HPV Vaccine Complete Diethylstilbestrol (LIONEL) exp osed daughters of women who took LIONEL during ? N Current Control Method Condoms Urinary Incontinence Symptoms N Date of Last Pap Smear 03/24/2023 Obstetrics History GPAL:G 1 P 1 0 0 1 Type Value Full Term 1 Living 1 Total 1 Immunizations Vaccine Type Date Status Note Provider Brody pickens and Address Organization Details Recorded Time Influenza, MDCK, quadrivalent, PF 05/27/2023 completed Ivania [place] null, [place] [facility] 01/29/2024 17:14:17 Influenza, MDCK, quadrivalent, PF 05/31/2022 completed Ivania [place] null, [place] [facility] TENDER 01/29/2024 17:14:17 COVID-19, mRNA, LNP-S, PF, 30 mcg/0.3 mL dose 10/19/2020 completed Ivania Yojana null, [place] [facility] TENDER 01/29/2024 17:14:17 COVID-19, mRNA, LNP-S, PF, 30 mcg/0.3 mL dose 11/09/2020 completed Ivania [place] null, [place] [facility] TENDER 01/29/2024 17:14:17 COVID-19, mRNA, LNP-S, PF, 30 mcg/0.3 mL dose 07/01/2021 completed Ivania [place] null, [place] [facility] TENDER 01/29/2024 17:14:17 COVID-19, mRNA, LNP-S, bivalent, PF, 30 mcg/0.3 mL dose 06/06/2022 completed [facility]ojana null, [place] [facility] 01/29/2024 17:14:17 COVID-19, mRNA, LNP-S, PF, sergio-sucrose, 30 mcg/0.3 mL 05/27/2023 completed Ivania Yojana null, [place] - [facility] TENDER 01/29/2024 17:14:17 Tdap 11/27/2020 completed Ivania Yojana null, [place] [facility] TENDER 01/29/2024 17:14:17 Tdap 03/06/2020 completed Ivania [place] null, [place] [facility]OB[facility]ZENE TENDER 01/29/2024 17:14:17 Influenza, split virus, trivalent, PF 05/05/2020 completed Ivania [place] null, [place] [facility] [employer] TENDER 01/29/2024 17:14:17 Influenza, split virus, quadrivalent, PF 04/19/2021 completed Ivania Yojana null, [place] [facility] [employer] TENDER 01/29/2024 17:14:17 COVID-19, mRNA, LNP-S, PF, sergio-sucrose, 30 mcg/0.3 mL 04/29/2024 completed Irais Mohamed null, [place] [facility]ZENE TENDER 05/03/2024 09:41:03 Influenza, MDCK, trivalent, PF 04/29/2024 completed Irais Mohamed null, [place] [facility] [employer] TENDER 05/03/2024 09:41:03 Past Encounters Encounter ID Performer Location Encounter Start Date Encounter Closed Date Diagnosis/Indication Diagnosis SNOMED-CT Code Diagnosis ICD10 Code Diagnosis Note [id number] BRO LEMUS MD [id number] [facility]_[address] ,[address] [place] [id number] 11/04/2024 10:26:33 11/04/2024 11:13:22 Endometrial hyperplasia 985050686 N85.00 Postoperative visit 1836 54471 Z48.89 Health Concerns Section Related Observation LastModified by Organization Detai ls LastModified Time None Recorded Concern Status LastModified by Organization Details LastModified Time None Recorded Payers Encounter Date Sequence Insurance Name Policy Number Policy Arreaga Covered Member ID Arreaga Member ID Guarantor Name 11/04/2024 1 [employer] - OPEN ACCESS CHOICE (HMO) [id number] Lili Devi [id number] Lili Devi Notes Date Note Type Note Provider Name and Address Organization Details Recorded Time 11/04/2024 text/html Lili is a 33yo 3.5 [...] diarrhea, [place] [id number] [facility],[address], [place], [address], [place] [facility] [employer]ICHLOROBENZENE TENDER 11/04/2024 11:12:42 OBGyn Episode No OBEpisode recorded.
[2024-11-21 23:27] VITALS: BP 152/98; PULSE 83; RESP 18; TEMP 36.5; O2SAT 100; BMI 38.2
--- NOTE | 2024-11-21 23:45 | ED.GENADULT ---
HPI - General Adult General Chief complaint: Hypertension Stated complaint: High BP Time Seen by Provider: 11/21/24 23:24 History of Present Illness HPI narrative: This 33-year-old female comes in with concern about high blood pressure. She states that she measured a blood pressure were with a systolic value around 150 earlier today. She called in to a nurse line and was told to come in by ambulance to the emergency department. She did not come by ambulance but does present here stating that she has measured some increased blood pressures over the past month or so. She did have a hysteroscopy and also reports some vniayak hypertension several years ago that resolved after delivery of the baby. Her initial blood pressure on arrival here was a systolic value of 152. Recheck later was in the 130s. Related Data Home Medications ?Medication ?Instructions ?Recorded ?Confirmed multivitamin (Daily Multi-Vitamin 1 tab PO QAM 05/22/24 10/29/24 tablet) sumatriptan succinate 50 mg tablet mg PO 05/22/24 10/29/24 triamcinolone acetonide 0.1 % applic topical 3XD PRN 05/22/24 10/29/24 topical cream norethindrone (contraceptive) 0.35 0.35 mg PO QDAY 10/29/24 10/29/24 mg tablet megestrol 40 mg tablet 40 mg PO DAILY 11/21/24 11/21/24 Previous Rx's ?Medication ?Instructions ?Recorded dextroamphetamine-amphetamine 5 mg 1 tab PO DAILY #90 tabs 08/08/24 tablet lisdexamfetamine 50 mg capsule 50 mg PO DAILY #90 caps 10/29/24 lisinopril 10 mg tablet 10 mg PO DAILY #30 tabs 11/21/24 Allergies Allergy/AdvReac Type Severity Reaction Status Date / Time amoxicillin AdvReac Mild Hives Verified 10/29/24 08:03 Review of Systems Status of ROS: Reports: 10 or more systems reviewed and unremarkable except as noted in History and below Narrative: Constitutional: No fevers, no weight gain or loss. Eyes: No discharge. No vision changes. HENT: No congestion, no sore throat, no ear pain. Cardiovascular: No chest pain, no palpitations. Respiratory: No shortness of breath, no wheezes, no cough. Gastrointestinal: No abdominal pain, no vomiting, no diarrhea. Genitourinary: No dysuria, no hematuria. Musculoskeletal: Normal range of motion. Skin: No rashes, no pruritis. Neurological: No dizziness, weakness, sensory change, speech change. Endo/Heme/Allergies: No bruising or bleeding. No polydipsia. Pysch: no suicidality, no anxiety, no insomnia. All other systems reviewed and are negative. [facility] History (Updated 10/29/24 @ 08:20 by Gurpreet Wilhelm PA-C) History of cervical polypectomy ?Z98.890 - Other specified postprocedural states (ICD-10) ?Z87.42 - Personal history of other diseases of the female genital tract (ICD-10) History of hysteroscopy ?Z98.890 - Other specified postprocedural states (ICD-10) History of wisdom tooth extraction ?K08.409 - Partial loss of teeth, unspecified cause, unspecified class (ICD-10) History of ?Z98.891 - History of uterine scar from previous surgery (ICD-10) Social History (Updated 05/22/24 @ 13:31 by Lili Robles ~ [facility]) What is your current living situation?: I presently have a place to live Problems where you live: no known problems In the past 12 months, utilities in danger of being shut off: no In past 12 months, lack of transportation kept you from medical appts, meetings, work, or getting things needed for daily living: no In the past 12 mos, have been you worried that your food would run out before you had money to buy more?: never true In the past 12 mos, the food you bought just didn't last and you didn't have money to buy more?: never true How often does anyone, including family, friends and others, physically hurt you: never How often does anyone, including family, friends and others, insult or talk down to you: never How often does anyone, including family, friends and others, threaten you with harm: never How often does anyone, including family, friends and others, scream or curse at you: never Exam Narrative: Exam Narrative: Constitutional: Well-developed, well-nourished, no acute distress. HEENT: Normocephalic, atraumatic. Neck: Normal range of motion. Nontender. Supple. Heart: Regular. No murmurs. Normal rate. Intact distal pulses. Lungs: Clear to auscultation. No chest discomfort. No wheezes, rhonchi, or rales. Abdomen: Normal bowel sounds. Nontender. No rebound tenderness. Genitalia: Deferred. Back: No midline tenderness. Normal range of motion. Extremities: Normal range of motion. No injury. Skin: Intact. No rash. Warm. No erythema or pallor. Neurologic: No altered sensation. No weakness. Alert and oriented. Psychiatric: No suicidality. No anxiety or depression. No insomnia. Nursing notes and vitals signs are reviewed. Const: Vital Signs, click to edit/add: Vital Signs - 24 hr 11/21/24 23:27 Temperature 97.7 F Pulse Rate [Right Pulse Oximeter] 83 Respiratory Rate 18 Blood Pressure [Ri ght Upper Arm] 152/98 H Pulse Oximetry 100 Oxygen Delivery Me thod Room Air Course Vital Signs Vital signs: Initial Vital Signs Temperature 97.7 F 11/21/24 23:27 Temperature Source Temporal Artery Scan 11/21/24 23:27 Pulse Rate 83 11/21/24 23:27 Respiratory Rate 18 11/21/24 23:27 Blood Pressure 152/98 H 11/21/24 23:27 Blood Pressure Mean 116 H 11/21/24 23:27 Blood Pressure Position Sitting 11/21/24 23:27 Pulse Oximetry 100 11/21/24 23:27 Oxygen Delivery Method Room Air 11/21/24 23:27 Vital Signs Temperature 97.7 F 11/21/24 23:27 Pulse Rate 83 11/21/24 23:27 Respiratory Rate 18 11/21/24 23:27 Blood Pressure 152/98 H 11/21/24 23:27 Pulse Oximetry 100 11/21/24 23:27 Oxygen Delivery Method Room Air 11/21/24 23:27 Temperature 97.7 F 11/21/24 23:27 Pulse Rate 83 11/21/24 23:27 Respiratory Rate 18 11/21/24 23:27 Blood Pressure 152/98 H 11/21/24 23:27 Pulse Oximetry 100 11/21/24 23:27 Oxygen Delivery Method Room Air 11/21/24 23:27 Medical Decision Making MDM Narrative Medical decision making narrative: This patient comes in with concern about elevated blood pressure. I did describe criteria for establishing a diagnosis of hypertension. Her blood pressure is just a bit elevated but nothing too remarkable. She is able to check her blood pressure at home and record the results for follow-up with her primary physician. She states that she has been doing this and has had slightly elevated blood pressures consistently over the past month or so. She often records pressures in the 140s. I did provide a prescription for lisinopril 10 mg but again encouraged her to follow-up with her primary physician for ongoing management and diagnosis. Discharge Plan Discharge Clinical Impression: Elevated blood pressure reading Patient Disposition: Home, Self-Care Condition: Stable Additional Instructions: Take medication as prescribed. Follow up with primary physician for ongoing diagnosis and management. Return if worsening. Prescriptions: New lisinopril 10 mg tablet 10 mg PO DAILY Qty: 30 2RF No Action multivitamin [Daily Multi-Vitamin] Tablet 1 tab PO QAM sumatriptan succinate 50 mg tablet PO triamcinolone acetonide 0.1 % cream topical 3XD PRN norethindrone (contraceptive) 0.35 mg tablet 0.35 mg PO QDAY lisdexamfetamine 50 mg capsule 50 mg PO DAILY Qty: 90 0RF megestrol 40 mg tablet 40 mg PO DAILY dextroamphetamine-amphetamine 5 mg tablet 1 tab PO DAILY Qty: 90 0RF Follow Up/Referrals: Gurpreet Wilhelm PA-C [Primary Care Provider] - Stand Alone Forms: Nerdies Info Instructions
--- OUTSIDE RECORDS SUMMARY | 2024-11-21 23:52 | XMS_ITS | Clinical Summary ---
Author Organization [facility] Address [address], [place] [address] Care Team Providers Care Patient Monitor Name Role Phone Angel Luis Samuel MD Primary Care Provider + [phone] Source Comments You are receiving this document as you are listed as the primary care provider,follow-up provider, or the patient has been referred to you for consultation.This is in compliance with the Medicare and[facility] EHR Incentive Program,which states Providers who transition their patient to another setting of careor provider of care or refers their patient to another provider of care shouldprovide summary care record for each transition of care or referral. Nanotecture Allergies Active Allergy Reactions Criticality Noted Date [...] last rx 30 Capsule 06/14/2024 1:35 PM HOME CARE MANAGER RN 4 Active amphetamine-dext roamphetamine (ADDERALL) 5 MG tablet Take 1 tablet by mouth daily. 90 Tablet 08/21/2024 5:34 PM HOME CARE MANAGER RN 5 Active lisdexamfetamine (VYVANSE) 50 MG capsule [...] mouth daily. 90 Capsule 08/20/2024 4:53 PM HOME CARE MANAGER RN 5 10/30/19 25 Discontinu ed(*Med change OR [...] Care Team Description 11/21/2024 Nurse Triage Careline [address] [place], [place] [address] Unassigned, Provider HEADACHE; Hypertension 11/14/2024 4:20 PM CDT Office Visit [facility] [address] [address] Suzie Schmid, [employer]E P[employer]ER, [employer] Acute bacterial sinusitis (Primary Dx) from Last 3 Months Immunizations Immunization Administration Dates Next Due Flu Vac Preserv Free (3+yrs) 05/05/2020 Hepatitis B - Surface Antibody Positive 04/15/20 Influenza (Flucelvax), Preserv Free QIV 05/27/20 23,05/31/2022 Influenza IIV4 (Quadrivalent) 0.5mL (84526) 03/25 Influenza ccIIV3 6 months+ (Flucelvax) Pfizer [...] 10:10 AM CDT Appointment [facility] [place] [address] [place] [address] Diane Finn [facility] [address] [place], [place] [id number] Health Maintenance Due Date Last Done Comments [...] Negative (Non Reactive) 03/21/2024 11:40 PM CDT [facility] Comment:Antibodies to HCV no t detected. Does not exclude the possiblity of exposure to HCV. Blood Lab OP Venipunct ure / Unknown 03/21/2024 3:11 PM CDT 03/21/2024 3:19 PM CDT us Suzie Schmid [employer] LAB_1 F inal Result [facility] [address] [place] [address], [facility] * PAP Test (03/24/2023 8:54 AM CDT) Case Report Pap Case: [id number] Authorizing Provider: Madie Sunshine MD Collected: 03/24/2023 0854 Ordering Location: [place] [facility] Received: 03/24/2023 1307 and Gynecology First Screen: Thu Duran CT (ASCP) Specimen: Pap Test, Routine, Cervix/Endocervix 03/31/2023 8:05 AM [facility] Pap Specimen Adequacy Satisfactory for evaluation, endocervical/martinez sformation zone component absent. 03/31/2023 8:05 AM [facility] Pap Interpretation (NILM) Negative for intraepithelial lesion or malignancy. 03/31/2023 8:05 AM [facility] at 0805 CDT Pap Disclaimer The Pap test is a screening test to aid in the detection of cervical and vaginal cancers and their precursor lesions. It is not a diagnostic procedure and should not be used as the sole means of detecting malignancy. Both false-positive and false-negative results may occur. 03/31/2023 8:05 AM [facility] Gross Description The specimen is received in SurePath fixative and properly labeled. 1 Pap-stained SurePath slide is prepared. 03/31/2023 8:05 AM [facility] Embedded Images 8:05 AM [facility] Other Specimen Type ENTIRE ENDOCERVIX / Unknown 03/24/2023 8:54 AM CDT 03/24/2023 1:07 PM CDT Comment:LMP: No LMP recorded . (Menstrual status: IUD). Madie Sunshine MD LAB PATHOLOGY Final Resul t [address] [address], [facility] [phone] * HIV 1/2 AG/AB 4TH GEN (04/15/2020 10:40 AM CDT) HIV 1/2 Antigen/Anti body (4th generation) Negative (Non Reactive) Negative (Non Reactive) 04/15/2020 3:28 PM CDT [facility] Comment:HIV-1 p24 Antigen an d HIV-1/HIV-2 Antibody not detected Blood Venipuncture / Unknown 04/15/2020 10:40 AM CDT 04/15/2020 10:40 AM CDT Madie Sunshine MD LAB_1 Final Resul t Performing Organization Address City/[facility]/ZIP Co de Phone Number [facility] [address] [phone] from Last 3 Months or Most Recently Relevant to Health Maintenance Insurance SELF INSURED SELF INSURED HP SELF INSURED HP COMM HP FAMILY DENTAL Advance Directives * Full Code (Latest Code Status on File) Date Activated Date Inactivated Comments 12/04/2020 8:11 PM 12/06/2020 6:58 PM * Full Code Date Activated Date Inactivated Comments 12/04/2020 1:28 AM 12/04/2020 8:11 PM Care Teams Patient Monitor Relationship Specialty [place] [address] [place] [address] PCP - General Family Practice 05/29/23
--- OUTSIDE RECORDS SUMMARY | 2024-11-21 23:52 | XMS_ITS | Encounter Summary ---
Author Organization [facility] Address [address] [place] [address] Care Team Providers Care Packaging Supervisor Name Role Phone Angel Luis Samuel MD Primary Care Provider + [phone] Reason for Visit * Reason Comments HEADACHE Hypertension Encounter Details Date Type Department Care Team (Late st Contact Info) Description 11/21/2024 Nurse Triage Careline [address] [place] [address] Unassigned, Provider [address] [place] [address] HEADACHE; Hypertension Social History Tobacco Use Types [...] or heavy Protocols used: Blood Pressure - Melx-PWSPV-MG, Chest Fsfa-EOIRI-IY Plan - recommend calling 911 due to [...] Info) Description 02/06/2025 10:10 AM CDT Appointment [address] [address] Diane Finn, [facility] [address] [place], [place] [phone] documented as of this encounter Visit Diagnoses Not on filedocumented in this encounter Care Teams Packaging Supervisor Relationship Specialty [place] [address] [facility] [place] [phone] PCP - General Family Practice 05/29/23 documented as of this encounter
--- OUTSIDE RECORDS SUMMARY | 2024-11-21 23:52 | XMS_ITS | Encounter Summary ---
Author Organization [facility] Address [address], [place] [address] Care Team Providers Care Cataract Lens Generator Name Role Phone Angel Luis Samuel MD Primary Care Provider + [phone] Reason for Visit * Reason Comments CONGESTION, NASAL COUGH Encounter Details Date Type Department Care Team (Late st Contact Info) Description 11/14/2024 4:20 PM CDT Office Visit [facility] [address] [place] [address] Suzie Schmid, SIGNALS COLLECTOR/ANALYST, INVESTMENT EXECUTIVE [address] [place] [address] Acute bacterial sinusitis (Primary Dx) Social History [...] your congestion worse. If needed, take an calb-fli-grbqcot pain medicine, such as acetaminophen (Tylenol), ibuprofen (Advil, Motrin), or naproxen (Aleve). Read and follow all instructions on the label. If the doctor prescribed antibiotics, take them as directed. Do not stop taking them just because you feel better. You need to take the full course of antibiotics. Be careful when taking egqv-ftq-zwtboys cold or flu medicines and Tylenol at [...] can you learn more? 1. Go to https://www.Kash.Lobster/healthlibrary. 2. Enter I933 in the search box. Current as of: April 19, 2023 Content Version: 14.2 ?? 2023 [employer]. Care instructions adapted under license by your healthcare professional. If you have questions about a medical condition or this instruction, always ask your healthcare professional. [email or web address] disclaims any warranty or liability for your use of this information. documented in this encounter Progress Notes * Suzie Schmid, RIMA, ED - 11/14/2024 4:20 PM CDT Chief Complaint: Chief Complaint Patient presents with CONGESTION, NASAL COUGH HPI: Lili Devi is a 33-year-old female presenting to [facility] with complaints of cough [...] Info) Description 02/06/2025 10:10 AM CDT Appointment [facility] [address] [place] [phone] Diane Finn, [address] [place], [place] [phone] documented as of this encounter Visit Diagnoses Diagnosis Acute bacterial sinusitis- Primary Acute sinusitis, unspecified documented in this encounter Care Teams Cataract Lens Generator Relationship Specialty Start [place] [address] [place], [place] [phone] PCP - General Family Practice 05/29/23 documented as of this encounter
== END 2024-11-21 23:55 | disposition home or self-care (01) ==
PROVIDERS: Emergency Provider Emergency Medicine Emergency Medical Services; PCP Physician Assistant Medical
DX: R03.0 Elevated blood-pressure reading, without diagnosis of hypertension (principal)
CPT/HCPCS: 99283; 99284

== ENCOUNTER 2025-04-30 08:15 | Outpatient (CLI) | payer OTHER, SELFPAY | END 2025-04-30 08:16 | disposition home or self-care (01) | LOC: FRMREF 08:16 | PROVIDERS: PCP Physician Assistant Medical; Visit Provider Physician Assistant Medical | DX: E05.90 Thyrotoxicosis, unspecified without thyrotoxic crisis or storm (principal) | CPT/HCPCS: 84443 ==